=== PATIENT | female | born 1930 | race Caucasian/White ===

== ENCOUNTER 2016-05-04 11:59 | Outpatient (RCR) | payer MEDICARE ==
[2016-04-30 12:02] VITALS: BP 130/68; PULSE 74; TEMP 98
[2016-05-01 11:50] VITALS: BP 112/65; PULSE 74; TEMP 98.4
[~2016-05-04] VITALS: Ht 157.5 cm; Wt 104.0 kg
[~2016-05-04 11:59] MED LIST: ALDACTONE 25MG25 M1 PO; ASPIRIN E.C. 8181 MG PO; COZAAR100 MG PO; MULTIPLE VITAMI1 CAP PO; OMEGA-3 FISH1000 MG PO; SYNTHROID0.1 MG/TAB PO; ZOCOR 80MG80 MG PO
[2016-11-06] MEDS ORDERED: PLAVIX 75MG TAB75 MG PO (15:10)
== END 2016-07-29 | disposition home or self-care (01) ==
LOC: COL.RAD
DX: C79.89 Secondary malignant neoplasm of other specified sites (principal); C34.91 Malignant neoplasm of unspecified part of right bronchus or lung
CPT/HCPCS: A9528; J3240

== ENCOUNTER → 2016-08-23 | Outpatient (CLI) | payer MEDICARE ==
[~2016-08-23] MED LIST changes: +PLAVIX 75MG TAB75 MG PO
== END ==
LOC: COL.VAS 08:52
DX: I08.0 Rheumatic disorders of both mitral and aortic valves (principal)

== ENCOUNTER → 2016-11-06 | Day surgery (SDC) | payer MEDICARE ==
[~2016-11-06] VITALS: Ht 157.6 cm; Wt 104.0 kg
[2016-11-06] VITALS (7 sets, daily range): BP systolic 97–122; BP diastolic 59–98; PULSE 65–76; TEMP 98.5
[2016-11-06 09:59] LABS: HEMATOCRIT 42.5 % (37.0-47.0); HEMOGLOBIN 14.7 g/dl (12.5-16.0); MEAN CELL VOLUME 92 fl (80.0-100.0); MEAN CORPUSCULAR HEMOGLOBIN 32 pg (27.0-31.0); MEAN CORPUSCULAR HGB CONC 35 g/dl (33.0-37.0); MEAN PLATELET VOLUME 9.6 fl (7.4-10.4); PLATELET COUNT 167 K/mm3 (130-400); RED BLOOD COUNT 4.64 M/mm3 (4.10-5.30); REDCELL DISTRIBUTION WIDTH-CV 13.2 % (11.5-14.5); WHITE BLOOD COUNT 7.8 K/mm3 (4.8-10.8)
[2016-11-06 10:10] LABS: INR 1.1 (0.8-3.0); PROTHROMBIN TIME 11.8 SECONDS (9.7-12.8)
[2016-11-06 10:11] LABS: CALCIUM 8.8 mg/dL (8.4-10.2); CREATININE, serum 0.93 mg/dL (0.52-1.25)
== END ==
LOC: COL.CAR 09:15
PROVIDERS: Internal Medicine Cardiovascular Disease
DX: I25.10 Atherosclerotic heart disease of native coronary artery without angina pectoris (principal); I10 Essential (primary) hypertension; E78.5 Hyperlipidemia, unspecified; I35.0 Nonrheumatic aortic (valve) stenosis; I27.2 Other secondary pulmonary hypertension; G47.33 Obstructive sleep apnea (adult) (pediatric); E78.00 Pure hypercholesterolemia, unspecified; I34.0 Nonrheumatic mitral (valve) insufficiency; I07.1 Rheumatic tricuspid insufficiency; E03.9 Hypothyroidism, unspecified; R06.00 Dyspnea, unspecified; R06.02 Shortness of breath
CPT/HCPCS: C1769; J1644; J2250; J3010; Q9967

== ENCOUNTER → 2016-11-19 | Outpatient (CLI) | payer MEDICARE | LOC: MC.RAD 08:40 | DX: Z12.31 Encounter for screening mammogram for malignant neoplasm of breast (principal) ==

== ENCOUNTER → 2016-12-19 | Outpatient (CLI) | payer MEDICARE | LOC: ZCOL.LAB 12:53 | DX: R07.9 Chest pain, unspecified (principal) ==

== ENCOUNTER → 2016-12-21 | Outpatient (CLI) | payer MEDICARE | LOC: COL.PUL 10:00 | DX: R06.02 Shortness of breath (principal) | CPT/HCPCS: J7674 ==

== ENCOUNTER → 2017-11-28 | Outpatient (CLI) | payer MEDICARE | LOC: MC.RAD 07:52 | DX: Z12.31 Encounter for screening mammogram for malignant neoplasm of breast (principal) ==

== ENCOUNTER 2018-09-23 11:00 | Outpatient (RCR) | payer MEDICARE ==
[2018-09-22 11:19] VITALS: BP 114/57; PULSE 73; TEMP 98.4
[~2018-09-23] VITALS: Ht 157.5 cm; Wt 103.0 kg
[2018-09-23 11:01] VITALS: BP 126/72; PULSE 75; TEMP 98.2
--- NOTE | 2018-09-23 11:10 | NUR ---
Pt judi thyrogen well. Pt discharged per ambulation.
== END 2018-09-23 11:11 | disposition home or self-care (01) ==
LOC: EUO 11:00
DX: C73 Malignant neoplasm of thyroid gland (principal)
CPT/HCPCS: J3240

== ENCOUNTER 2018-12-04 08:00 | Outpatient (RCR) | payer MEDICARE | END 2019-02-08 | disposition still patient (30) | LOC: WSOT | DX: S52.502A Unspecified fracture of the lower end of left radius, initial encounter for closed fracture (principal) ==

== ENCOUNTER → 2018-12-16 | Outpatient (CLI) | payer MEDICARE | LOC: MC.RAD 07:28 | DX: Z12.31 Encounter for screening mammogram for malignant neoplasm of breast (principal) ==

== ENCOUNTER → 2019-02-04 | Outpatient (CLI) | payer MEDICARE | LOC: COL.RAD 10:07 | DX: F22 Delusional disorders (principal); I67.82 Cerebral ischemia ==

== ENCOUNTER → 2019-03-04 | Outpatient (CLI) | payer MEDICARE | LOC: COL.CARD 02-13 10:00 | DX: R20.0 Anesthesia of skin (principal); R20.2 Paresthesia of skin; R52 Pain, unspecified ==

== ENCOUNTER → 2019-12-23 | Outpatient (CLI) | payer MEDICARE ==
[~2019-12-23] MED LIST changes: -SYNTHROID0.1 MG/TAB PO; +SYNTHROID0.125 MG/T PO; +VITAMIN D 1001000 IU PO
== END ==
LOC: MC.RAD 09:28
DX: Z12.31 Encounter for screening mammogram for malignant neoplasm of breast (principal)

== ENCOUNTER → 2020-04-04 | Outpatient (CLI) | payer MEDICARE ==
[~2020-04-04] VITALS: Ht 157.5 cm; Wt 105.4 kg
[~2020-04-04] MED LIST changes: -MULTIPLE VITAMI1 CAP PO; +MULTIPLE VITAMI1 TA5 PO; -VITAMIN D 1001000 IU PO; +VITAMIN D31000 IU PO
[2020-04-04 12:16] VITALS: BP 171/78; PULSE 74
[2020-04-04 13:15] VITALS: BP 182/82; PULSE 69
== END ==
LOC: COL.RAD 11:56
DX: M48.061 Spinal stenosis, lumbar region without neurogenic claudication (principal); M54.16 Radiculopathy, lumbar region
CPT/HCPCS: J3301

== ENCOUNTER 2020-07-18 13:02 | Outpatient (CLI) | payer MEDICARE ==
[~2020-07-18] VITALS: Ht 157.5 cm; Wt 101.2 kg
[2020-07-18 13:24] VITALS: BP 118/81; PULSE 99; TEMP 98.1
[2020-07-18] MEDS ORDERED: RECLAST5 MG/100 M IV (13:32)
[2020-07-18] MEDS ORDERED: XALATAN EYE DROPS OU (13:32)
== END 2020-07-18 14:52 | disposition home or self-care (01) ==
LOC: EUO 13:02
DX: M81.0 Age-related osteoporosis without current pathological fracture (principal)
CPT/HCPCS: J3489

== ENCOUNTER → 2020-10-18 | Outpatient (CLI) | payer MEDICARE ==
[~2020-10-18] VITALS: Ht 157.5 cm; Wt 101.2 kg
[~2020-10-18] MED LIST changes: +RECLAST5 MG/100 M IV; +XALATAN EYE DROPS OU
[2020-10-18 12:05] VITALS: BP 128/91; PULSE 74
[2020-10-18 12:54] VITALS: BP 128/86; PULSE 71
== END ==
LOC: COL.RAD 11:40
DX: M48.062 Spinal stenosis, lumbar region with neurogenic claudication (principal)
CPT/HCPCS: J3301

== ENCOUNTER → 2021-01-20 | Outpatient (CLI) | payer MEDICARE | LOC: MC.RAD 09:30 | DX: Z12.31 Encounter for screening mammogram for malignant neoplasm of breast (principal) ==